=== PATIENT | female | born 1960 | race African-American/Black ===

== ENCOUNTER 2018-12-10 15:25 | Emergency (ER) | payer MEDICARE, MEDICAID ==
[~2018-12-10] VITALS: Ht 188 cm; Wt 85.3 kg
--- NOTE | 2018-12-10 15:44 | ED Fall/Injury ---
General Chief Complaint: Trauma-Non Activation Stated Complaint: FALL Source: patient, EMS Exam Limitations: no limitations History of Present Illness Date Seen by Provider: Dec 10, 2018 Time Seen by Provider: 15:29 Initial Comments Patient presents to ER by EMS with chief complaint that she was at the [email or web address] when the bathroom noticing water on the floor but she did not think anything of it. When she went to stand up she said she then slipped on the water and fell. She then said she did not notice the water until after she had fallen. She Says she struck her right side of her head her right shoulder and her right hip and is having pain in her hip and her right side of her head. She is not on blood thinners nor does she take antiplatelets. 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 She is not having any bleeding or not on the side of her head. She says she took all the lobby pins out of her with. She has no previous history of surgery on her back shoulder or right hip. She is having some chronic back pain for which she uses tramadol and her last dose was sometime this morning around 6 or 7 AM. EMS reports they put her in a c-collar if she is complaining of neck pain and they did not give her anything for pain. She denies any other significant medical history, medical allergies or surgeries. Allergies and Home Medications Allergies Coded Allergies: No Known Drug Allergies (Unverified , 12/10/18) Patient Home Medication List Home Medication List Reviewed: Yes Review of Systems Review of Systems Constitutional: No chills, No diaphoresis Eyes: Denies Blindness, Denies Blurred Vision Ears, Nose, Mouth, Throat: denies ear pain, denies ear discharge Respiratory: No cough, No dyspnea on exertion Cardiovascular: No chest pain, No edema Gastrointestinal: No abdominal pain, No constipation, No diarrhea, No nausea Past Uwppibc-Ivcynl-Lmjeky Hx Patient Social History Alcohol Use: Denies Use Recreational Drug Use: No Smoking Status: Never a Smoker Recent Foreign Travel: No Contact w/Someone Who Travel: No Physical Exam Vital Signs Vital Signs - First Documented 12/10/18 15:48 Temp 98.7 Pulse 70 Resp 20 B/P (MAP) 115/82 (93) Pulse Ox 97 Capillary Refill : Height, Weight, BMI Height: '" Weight: lbs. oz. kg; BMI Method: General Appearance: WD/WN, no apparent distress HEENT: PERRL/EOMI, normal ENT inspection, TMs normal, pharynx normal, other (week. No obvious external trauma. Tenderness to the right parietal scalp. Negative for Gordillo sign, raccoon eyes, hemotympanum.) Neck: full range of motion, supple, normal inspection, tender midline (mild) Cardiovascular: normal peripheral pulses, regular rate, rhythm, no edema Respiratory: lungs clear, normal breath sounds, no respiratory distress, no accessory muscle use Peripheral Pulses: 2+ Dorsalis Pedis (R), 2+ Left Dors-Pedis (L), 2+ Radial Pulses (R), 2+ Radial Pulses (L) Gastrointestinal: normal bowel sounds, soft, tenderness (mild around the right lower quadrant) Neurologic/Psychiatric: alert, normal mood/affect, oriented x 3 Skin: normal color, warm/dry Eduardo Coma Score Best Eye Response: (4) Open Spontaneously Best Verbal Response: (5) Oriented Best Motor Response: (6) Obeys Commands [place] Total: 15 Progress/Results/Core Measures Results/Orders Lab Results Laboratory Tests Test 12/10/18 15:40 12/10/18 16:23 Range/Units White Blood Count 4.3 4.3-11.0 10^3/uL Red Blood Count 3.99 L 4.35-5.85 10^6/uL Hemoglobin 11.1 L 11.5-16.0 G/DL Hematocrit 34 L 35-52 % Mean Corpuscular Volume 85 80-99 FL Mean Corpuscular Hemoglobin 28 25-34 PG Mean Corpuscular Hemoglobin Concent 33 32-36 G/DL Red Cell Distribution Width 13.6 10.0-14.5 % Platelet Count 241 130-400 10^3/uL Mean Platelet Volume 9.4 7.4-10.4 FL Neutrophils (%) (Auto) 43 42-75 % Lymphocytes (%) (Auto) 48 H 12-44 % Monocytes (%) (Auto) 7 0-12 % Eosinophils (%) (Auto) 1 0-10 % Basophils (%) (Auto) 1 0-10 % Neutrophils # (Auto) 1.8 1.8-7.8 X 10^3 Lymphocytes # (Auto) 2.1 1.0-4.0 X 10^3 Monocytes # (Auto) 0.3 0.0-1.0 X 10^3 Eosinophils # (Auto) 0.1 0.0-0.3 10^3/uL Basophils # (Auto) 0.0 0.0-0.1 10^3/uL Sodium Level 137 135-145 MMOL/L Potassium Level 3.8 3.6-5.0 MMOL/L Chloride Level 102 98-107 MMOL/L Carbon Dioxide Level 26 21-32 MMOL/L Anion Gap 9 5-14 MMOL/L Blood Urea Nitrogen 10 7-18 MG/DL Creatinine 0.92 0.60-1.30 MG/DL Estimat Glomerular Filtration Rate > 60 BUN/Creatinine Ratio 11 Glucose Level 88 70-105 MG/DL Calcium Level 11.2 H 8.5-10.1 MG/DL Corrected Calcium 11.0 H 8.5-10.1 MG/DL Total Bilirubin 0.3 0.1-1.0 MG/DL Aspartate Amino Transf (AST/SGOT) 16 5-34 U/L Alanine Aminotransferase (ALT/SGPT) 22 0-55 U/L Alkaline Phosphatase 89 40-136 U/L Total Protein 7.3 6.4-8.2 GM/DL Albumin 4.3 3.2-4.5 GM/DL Urine Color YELLOW Urine Clarity SL CLOUDY Urine pH 6 5-9 Urine Specific [place] 1.025 H 1.016-1.022 Urine Protein 1+ H NEGATIVE Urine Glucose (UA) NEGATIVE NEGATIVE Urine Ketones NEGATIVE NEGATIVE Urine Nitrite NEGATIVE NEGATIVE Urine Bilirubin NEGATIVE NEGATIVE Urine Urobilinogen NORMAL NORMAL MG/DL Urine Leukocyte Esterase 3+ H NEGATIVE Urine RBC (Auto) 1+ H NEGATIVE Urine RBC 2-5 H /HPF Urine WBC TNTC H /HPF Urine Squamous Epithelial Cells 5-10 /HPF Urine Crystals NONE /LPF Urine Bacteria LARGE H /HPF Urine Casts NONE /LPF Urine Mucus NEGATIVE /LPF Urine Culture Indicated YES My Orders Orders - MARY MATOS Ketorolac Injection (Toradol Injection) (12/10/18 15:45) Cbc With Automated Diff (12/10/18 15:32) Comprehensive Metabolic Panel (12/10/18 15:32) Ua Culture If Indicated (12/10/18 15:32) Ct Head/Cervical Spine Wo (12/10/18 15:32) Shoulder, Right, 3 Views (12/10/18 15:32) Hip, Right, 2 Views (12/10/18 15:32) Dipht,Pertuss(Acell),Tet Adult (Boostrix (12/10/18 16:00) Tetanus Immune Globulin Inj (Baytet Inje (12/10/18 16:00) Urine Culture (12/10/18 16:23) Medications Given in ED Current Medications Medications Dose Ordered Sig/Jing Route Start Time Stop Time Status Last Admin Dose Admin Ketorolac Tromethamine 30 mg ONCE ONCE IVP 12/10/18 15:45 12/10/18 15:46 DC 12/10/18 16:21 30 MG Vital Signs/I&O 12/10/18 15:48 Temp 98.7 Pulse 70 Resp 20 B/P (MAP) 115/82 (93) Pulse Ox 97 Progress Progress Note : Time: 17:10 Progress Note C-collar cleared radiographically and clinically. Diagnostic Imaging Diagonstic Imaging: CT (noncontrast) Plain Films/CT/US/NM/MRI: c-spine, head Comments NAME: CASSIDY ALATORRE [facility] REC#: [id number] PT STATUS: REG ER : 1960 PHYSICIAN: MARY MATOS MD ADMIT DATE: 12/10/18/ER Signed Date of Exam:12/10/18 CT HEAD/CERVICAL SPINE WO PROCEDURE: CT head and CT cervical spine without contrast. TECHNIQUE: Multiple contiguous axial images were obtained through the brain and cervical spine without the use of intravenous contrast. Sagittal and coronal reformations through the cervical spine were then performed. Auto Exposure Controls were utilized during the CT exam to meet ALARA standards for radiation dose reduction. INDICATION: Fall with head and neck injury. CT HEAD: CT images of the head were obtained. FINDINGS: Ventricles and sulci are within normal limits for size. There is no intracranial hemorrhage identified. There is no abnormal mass effect or shift of midline structures. IMPRESSION: Unremarkable CT of the head. CT CERVICAL SPINE: There is straightening of cervical lordosis. There is disc space narrowing and endplate spurring with mild uncovertebral degenerative changes throughout the cervical spine. No acute fracture or malalignment is identified. IMPRESSION: Loss of cervical lordosis may be secondary to muscle spasm or positioning. Otherwise, there is no CT evidence of acute abnormality in the cervical spine. There is diffuse cervical spondylosis. Dictated by: Dictated on workstation # [id number] Dict: 12/10/18 1613 Trans: 12/10/18 1659 [id number] Interpreted by: SPENCER JOHNSTON MD Electronically signed by: SPENCER JOHNSTON MD 12/10/181658 Reviewed: Reviewed by Me Diagonstic Imaging: Xray Plain Films/CT/US/NM/MRI: hip (r) Comments NAME: CASSIDY ALATORRE [facility] REC#: [id number] PHYSICIAN: MARY MATOS MD CC: TARSHA DC MD; MARY MATOS Page 1 of 1 RADIOLOGY REPORT [facility] [place], [place] CC: TARSHA DC MD; MARY MATOS Page 1 of 1 RADIOLOGY REPORT NAME: CASSIDY ALATORRE [facility] REC#: [id number] PT STATUS: REG ER : 1960 PHYSICIAN: MARY MATOS MD ADMIT DATE: 12/10/18/ER Signed Date of Exam: 12/10/18 HIP, RIGHT, 2 VIEWS INDICATION: Right hip injury from a fall. EXAMINATION: Two views of the right hip were obtained. FINDINGS: There is no fracture or dislocation. IMPRESSION: Negative right hip. Dictated by: Dictated on workstation # [id number] Dict: 12/10/18 1625 Trans: 12/10/18 170 Interpreted by: TARSHA DC MD Electronically signed by: TARSHA DC MD 12/10/181699 Reviewed: Reviewed by Me Diagonstic Imaging: Xray Plain Films/CT/US/NM/MRI: other (right shoulder) Comments NAME: CASSIDY ALATORRE [facility] REC#: [id number] PHYSICIAN: MARY MATOS MD CC: ERMIAS PATINO MD; MARY MATOS Page 1 of 1 [facility] [place] [place] CC: ERMIAS PATINO MD; MARY MATOS Page 1 of 1 RADIOLOGY REPORT NAME: CASSIDY ALATORRE [facility] REC#: [id number] PT STATUS: REG ER : 1960 PHYSICIAN: MARY MATOS MD ADMIT DATE: 12/10/18/ER Signed Date of Exam: 12/10/18 SHOULDER, RIGHT, 3 VIEWS INDICATION: Right shoulder pain. COMPARISON: None available. TECHNIQUE: Three views of the right shoulder. FINDINGS: No fracture or traumatic malalignment. Joint spaces are preserved. Subacromial space is maintained. No abnormal soft tissue mineralization. IMPRESSION: No fracture or malalignment of the right shoulder. Dictated by: Dictated on workstation # [id number] Dict: 12/10/18 1649 Trans: 12/10/18 1700 Interpreted by: ERMIAS PATINO MD Electronically signed by: ERMIAS PATINO MD 12/10/181699 Reviewed: Reviewed by Me Departure Impression Primary Impression: Fall Qualified Codes: W19.XXXA - Unspecified fall, initial encounter Additional Impressions: Head ache Qualified Codes: R51 - Headache Right shoulder pain Qualified Codes: M25.511 - Pain in right shoulder Right hip pain Disposition: 01 HOME, SELF-CARE Condition: Stable Departure-Patient Inst. Decision time for Depature: 17:11 Patient Instructions: Preventing Falls Add. Discharge Instructions: An ice pack to your head as well as Tylenol 1000 mg every 8 hours or ibuprofen 800 mg every 8 hours can be helpful for the pain. Heating pads can be useful in her hip or shoulder for the first few days. All discharge instructions reviewed with patient and/or family. Voiced understanding. Work/School Note: Work Release Form Date Seen in the Emergency Department: Dec 10, 2018 Return to Work: Dec 11, 2018 Restrictions: No Restrictions MARY MATOS Dec 10, 2018 15:44
[2018-12-10] MEDS ORDERED: KETOROLAC 30 MG/ML VIAL IVP ONE (15:45)
[2018-12-10 15:51] LABS: BASOPHILS % (AUTO) 1 % (0-10); EOSINOPHILS # (AUTO) 0.1 10^3/uL (0.0-0.3); EOSINOPHILS % (AUTO) 1 % (0-10); HEMATOCRIT 34 % (35-52); HEMOGLOBIN 11.1 G/DL (11.5-16.0); LYMPHOCYTES # (AUTO) 2.1 X 10^3 (1.0-4.0); LYMPHOCYTES % (AUTO) 48 % (12-44); MEAN CORPUSCULAR HEMOGLOBIN 28 PG (25-34); MEAN CORPUSCULAR HGB CONC 33 G/DL (32-36); MEAN CORPUSCULAR VOLUME 85 FL (80-99); MEAN PLATELET VOLUME 9.4 FL (7.4-10.4); MONOCYTES # (AUTO) 0.3 X 10^3 (0.0-1.0); MONOCYTES % (AUTO) 7 % (0-12); NEUTROPHILS # (AUTO) 1.8 X 10^3 (1.8-7.8); NEUTROPHILS % (AUTO) 43 % (42-75); PLATELET COUNT 241 10^3/uL (130-400); RED CELL DISTRIBUTION WIDTH 13.6 % (10.0-14.5); WHITE BLOOD COUNT 4.3 10^3/uL (4.3-11.0)
[2018-12-10] MEDS ORDERED: TETANUS IMMUNE GLOBULIN 250 UNIT/ML SYR IM ONE (16:00)
[2018-12-10] MEDS ORDERED: TETANUS,DIPTH,PERTUSS P/F (BOOSTRIX) 0.5 ML VIAL IM ONE (16:00)
[2018-12-10] MEDS ORDERED: TIZA4TAB3 (16:01)
[2018-12-10] MEDS ORDERED: CITA20TA9 (16:01)
[2018-12-10] MEDS ORDERED: TRAM50TA2 (16:01)
[2018-12-10 16:13] LABS: ALANINE AMINOTRANSFERASE 22 U/L (0-55); ALBUMIN 4.3 GM/DL (3.2-4.5); ALKALINE PHOSPHATASE 89 U/L (40-136); BILIRUBIN,TOTAL 0.3 MG/DL (0.1-1.0); BUN/CREATININE RATIO 11; CALCIUM 11.2 MG/DL (8.5-10.1); CARBON DIOXIDE 26 MMOL/L (21-32); CHLORIDE 102 MMOL/L (98-107); CREATININE SERUM 0.92 MG/DL (0.60-1.30); GFR ESTIMATED > 60; GLUCOSE 88 MG/DL (70-105); POTASSIUM 3.8 MMOL/L (3.6-5.0); SODIUM 137 MMOL/L (135-145); TOTAL PROTEIN 7.3 GM/DL (6.4-8.2)
--- NOTE | 2018-12-10 16:28 | Diagnostic Imaging Report ---
INDICATION: Right hip injury from a fall. EXAMINATION: Two views of the right hip were obtained. FINDINGS: There is no fracture or dislocation. IMPRESSION: Negative right hip. Dictated by: Dictated on workstation # [id number]
[2018-12-10 16:29] LABS: BILIRUBIN,URINE NEGATIVE (NEGATIVE); COLOR,URINE YELLOW; GLUCOSE, URINE (UA) NEGATIVE (NEGATIVE); KETONES,URINE NEGATIVE (NEGATIVE); LEUKOCYTE ESTERASE ,URINE 3+ (NEGATIVE); NITRITE,URINE NEGATIVE (NEGATIVE); PH,URINE 6 (5-9); PROTEIN,URINE 1+ (NEGATIVE); UROBILINOGEN,URINE NORMAL (NORMAL)
[2018-12-10 16:38] LABS: BACTERIA,URINE LARGE /HPF; CLARITY,URINE SL CLOUDY; WBC,URINE TNTC /HPF
--- NOTE | 2018-12-10 16:45 | Diagnostic Imaging Report ---
PROCEDURE: CT head and CT cervical spine without contrast. TECHNIQUE: Multiple contiguous axial images were obtained through the brain and cervical spine without the use of intravenous contrast. Sagittal and coronal reformations through the cervical spine were then performed. Auto Exposure Controls were utilized during the CT exam to meet ALARA standards for radiation dose reduction. INDICATION: Fall with head and neck injury. CT HEAD: CT images of the head were obtained. FINDINGS: Ventricles and sulci are within normal limits for size. There is no intracranial hemorrhage identified. There is no abnormal mass effect or shift of midline structures. IMPRESSION: Unremarkable CT of the head. CT CERVICAL SPINE: There is straightening of cervical lordosis. There is disc space narrowing and endplate spurring with mild uncovertebral degenerative changes throughout the cervical spine. No acute fracture or malalignment is identified. IMPRESSION: Loss of cervical lordosis may be secondary to muscle spasm or positioning. Otherwise, there is no CT evidence of acute abnormality in the cervical spine. There is diffuse cervical spondylosis. Dictated by: Dictated on workstation # [id number]
--- NOTE | 2018-12-10 16:53 | Diagnostic Imaging Report ---
INDICATION: Right shoulder pain. COMPARISON: None available. TECHNIQUE: Three views of the right shoulder. FINDINGS: No fracture or traumatic malalignment. Joint spaces are preserved. Subacromial space is maintained. No abnormal soft tissue mineralization. IMPRESSION: No fracture or malalignment of the right shoulder. Dictated by: Dictated on workstation # [id number]
[2018-12-10 17:25] VITALS: BP 133/81
== END 2018-12-10 17:24 | disposition home or self-care (01) ==
LOC: ER 15:27
DX: M25.511 Pain in right shoulder (principal); M25.551 Pain in right hip; R51 Headache; R40.2142 Coma scale, eyes open, spontaneous, at arrival to emergency department; R40.2252 Coma scale, best verbal response, oriented, at arrival to emergency department; R40.2362 Coma scale, best motor response, obeys commands, at arrival to emergency department; W01.198A Fall on same level from slipping, tripping and stumbling with subsequent striking against other object, initial encounter; Y92.524 Gas station as the place of occurrence of the external cause
CPT/HCPCS: 36415; 70450; 72125; 73030; 73502; 80053; 81000; 85025; 96374